=== PATIENT | male | born 1945 | race Caucasian/White ===

== ENCOUNTER → 2020-10-13 | Outpatient (CLI) | payer BC, OTHER | LOC: KOH-I 12:38 | DX: N18.30 Chronic kidney disease, stage 3 unspecified (principal); N26.1 Atrophy of kidney (terminal); N28.9 Disorder of kidney and ureter, unspecified | CPT/HCPCS: 76775 ==

== ENCOUNTER → 2021-01-31 | Outpatient (CLI) | payer BC, OTHER | LOC: KOH-I 01-01 11:30 | DX: N28.1 Cyst of kidney, acquired (principal); N26.1 Atrophy of kidney (terminal) | CPT/HCPCS: 76775 ==

== ENCOUNTER → 2021-12-26 | Outpatient (CLI) | payer MEDICARE, OTHER | LOC: US 13:20 | PROVIDERS: Internal Medicine Nephrology | DX: N18.32 Chronic kidney disease, stage 3b (principal); E55.9 Vitamin D deficiency, unspecified; N28.1 Cyst of kidney, acquired | CPT/HCPCS: 36415; 80053; 82570; 82652; 83970; 84156 ==